=== PATIENT | female | born 1965 | race Caucasian/White ===

== ENCOUNTER → 2016-09-09 | Outpatient (CLI) | payer BC ==
--- NOTE | 2016-09-09 09:09 | MM ---
Reason for exam: additional evaluation requested from prior study. Last mammogram was performed 1 year ago. History: Patient is postmenopausal, has history of breast cancer at age 48, and is nulliparous. Mastectomy of the right breast, 2016. Radiation therapy, 2016. Chemotherapy, 2015. Taking antineoplastic beginning at age 49. Physical Findings: Nurse did not find any significant physical abnormalities on exam. MG 3D Diag Mammo W/Cad LT CC and MLO view(s) were taken of the left breast. Prior study comparison: September 08, 2015, left breast MG 3d diag mammo w/cad LT. October 14, 2014, bilateral MG diagnostic mammo w CAD CHARY. No significant new findings when compared with previous films. These results were verbally communicated with the patient and result sheet given to the patient on 09/09/16. ASSESSMENT: Benign, BI-RAD 2 RECOMMENDATION: Routine screening mammogram of the left breast in 1 year.
== END | disposition home or self-care (01) ==
LOC: RADMAMWWP 08:15
PROVIDERS: ATTEND Surgery
DX: Z08 Encounter for follow-up examination after completed treatment for malignant neoplasm (principal); Z85.3 Personal history of malignant neoplasm of breast
CPT/HCPCS: G0206; G0279

== ENCOUNTER → 2017-07-12 | Outpatient (CLI) | payer BC ==
--- NOTE | 2017-07-12 18:02 | BD ---
EXAMINATION TYPE: MG DEXA axial skeleton. DATE OF EXAM: 07/12/2017 COMPARISON: NONE CLINICAL HISTORY: Height: 66.7 IN Weight: 184 LBS FRAX RISK QUESTIONS: Alcohol (3 or more units per day): NO Family History (Parent hip fracture): NO Glucocorticoids (More than 3mos): NO (Ex: prednisone, prednisolone, methylprednisolone, dexamethasone, and hydrocortisone). History of Fracture in Adulthood: NO Secondary Osteoporosis: 1. Type 1 Diabetes: NO 2. Hyperthyroidism: NO 3. Menopause before 45: NO 4. Malnutrition: NO 5. Chronic liver disease: NO Rheumatoid Arthritis: NO Current Tobacco Use: NO RISK FACTORS HISTORY OF: Family History of Osteoporosis: MOTHER Active: YES Diet low in dairy products/other sources of calcium: YES Postmenopausal woman: AGE 49 MEDICATIONS: Additional Medications: FEMARA, VIT E FISH OIL Additional History: BREAST CANCER WITH CHEMO AND RADIATION IN 2014 EXAM MEASUREMENTS: Bone mineral densitometry was performed using the [employer]. Bone mineral density as measured about the Lumbar spine is: ----- L1-L4(G/cm2): 0.911 T Score Values are as follows: ----- L2: -2.5 ----- L3: -2.1 ----- L4: -2.8 ----- L1-L4: -2.2 Bone mineral density BASELINE Bone mineral density about the R hip (g/cm2): 0.744 Bone mineral density about the L hip (g/cm2): 0.768 T Score values are as follows: -----R Neck: -2.1 -----L Neck: -1.9 -----R Total: -2.1 -----L Total: -2.0 Bone mineral density BASELINE IMPRESSION: Osteopenia (T Score between -2.5 and -1). There is slightly increased risk of fracture and the patient may be considered for treatment. Re-Screen 2-5 years. NOTE: T-SCORE=SD OF THE YOUNG ADULT MEAN.
== END | disposition home or self-care (01) ==
LOC: RADBDWWP 08:35
PROVIDERS: ATTEND Internal Medicine Hematology & Oncology
DX: C50.411 Malignant neoplasm of upper-outer quadrant of right female breast (principal); M85.80 Other specified disorders of bone density and structure, unspecified site
CPT/HCPCS: 77080

== ENCOUNTER → 2017-09-11 | Outpatient (CLI) | payer BC ==
--- NOTE | 2017-09-11 08:55 | MM ---
Reason for exam: additional evaluation requested from prior study. Last mammogram was performed 1 year ago. History: Patient is postmenopausal, has history of breast cancer at age 48, and is nulliparous. Mastectomy of the right breast, 2016. Radiation therapy, 2016. Chemotherapy, 2015. Taking antineoplastic beginning at age 49. Physical Findings: Nurse did not find any significant physical abnormalities on exam. MG 3D Diag Mammo W/Cad LT CC and MLO view(s) were taken of the left breast. Prior study comparison: September 09, 2016, left breast MG 3d diag mammo w/cad LT. September 08, 2015, left breast MG 3d diag mammo w/cad LT. There are scattered fibroglandular densities. No significant new findings when compared with previous films. These results were verbally communicated with the patient and result sheet given to the patient on 09/11/17. ASSESSMENT: Negative, BI-RAD 1 RECOMMENDATION: Follow-up diagnostic mammogram of the left breast in 1 year.
== END | disposition home or self-care (01) ==
LOC: RADMAMWWP 07:35
PROVIDERS: ATTEND Surgery
DX: Z08 Encounter for follow-up examination after completed treatment for malignant neoplasm (principal); Z85.3 Personal history of malignant neoplasm of breast
CPT/HCPCS: 77061; 77065

== ENCOUNTER → 2017-09-21 | Outpatient (CLI) | payer BC ==
[2017-09-21 10:58] VITALS: BP 114/58; PULSE 75; BMI 29.2
--- NOTE | 2017-09-21 11:24 | P.GSHP ---
History of Present Illness H&P Date: 09/21/17 Patient is a 51 year old white female status post right mastectomy done on 2015. The patient underwent preoperative chemotherapy and then a mastectomy followed by radiation therapy. The patient is presently on Femara. The patient has no complaints at this time. She has no evidence of any recurrence. Patient has no swelling that she is concerned about in her right upper extremity. Patient had a left breast mammogram performed 09/01/17. This was felt to be negative BIRADS 1. Follow-up left breast mammogram in 1 year recommended. Patient underwent a PET scan recently and results are pending. The patient has an appointment with Dr. Bojorquez in September. Family History: negative for cancer menstral periods: 12 : none menopause: related to chemotherapy hormones: none BCP: none radiation to chest wall: none prior to surgery - Constitutional Comment: Occasional hot flashes for which she takes vitamin E - EENT Eyes: denies blurred vision, denies bulging eye, denies decreased vision Ears, nose, mouth and throat: Denies headache, Denies sore throat - Breasts Comment: Patient status post right mastectomy for malignancy, and no changes of concern in the left breast - Cardiovascular Cardiovascular: Denies chest pain, Denies shortness of breath - Respiratory Respiratory: Denies cough, Denies 7 - Gastrointestinal Comment: The bowel syndrome, have discussed colonoscopy has not had one for over 10 years Gastrointestinal: Reports constipation, Denies abdominal pain, Denies diarrhea, Denies nausea, Denies vomiting - Genitourinary (Female) Genitourinary: Denies dysuria, Denies hematuria - Menstruation Comment: Menopause as a result of the chemotherapy Menstruation: Reports amenorrhea - Musculoskeletal Musculoskeletal: Denies myalgias - Integumentary Comment: Telangiectasias right chest wall related to radiation Integumentary: Denies pruritus, Denies rash - Neurological Neurological: Denies numbness, Denies weakness - Psychiatric Psychiatric: Denies anxiety, Denies depression - Endocrine Endocrine: Denies fatigue, Denies weight change - Hematologic/Lymphatic Comment: none, no blood thiners - Allergic/Immunologic Comment: PCN Allergic/Immunologic: Reports seasonal allergies Past Medical History Past Medical History: Cancer Additional Past Medical History / Comment(s): IBS, RIGHT BREAST CA AND VERTEBRAE CA -DIAGNOSED SEPTEMBER 2014, LAST CHEMO ., HAS MEDIPORT. History of Any Multi-Drug Resistant Organisms: None Reported Past Surgical History: Breast Surgery, Tonsillectomy Additional Past Surgical History / Comment(s): TONSILLS A CHILD, MEDIPORT Past Anesthesia/Blood Transfusion Reactions: No Reported Reaction Additional Past Anesthesia/Blood Transfusion Reaction / Comment(s): WOKE UP CRYING. Past Psychological History: No Psychological Hx Reported Smoking Status: Never smoker Past Alcohol Use History: Rare Past Drug Use History: None Reported - Past Family History Mother Family Medical History: Diabetes Mellitus Medications and Allergies Home Medications Medication Instructions Recorded Confirmed Type Vitamin E 1 tab PO DAILY 05/18/15 09/21/17 History Letrozole 25 tbsp PO DAILY 09/21/17 09/21/17 History Allergies Allergy/AdvReac Type Severity Reaction Status Date / Time Penicillins Allergy Unknown Verified 05/19/15 15:08 Childhood Nuts, Seeds AdvReac Unknown Unknown Uncoded 05/19/15 15:08 Surgical - Exam Vital Signs Pulse BP Pulse Ox 75 114/58 99 09/21/17 10:49 09/21/17 10:49 09/21/17 10:49 - General well developed, well nourished - Eyes normal ocular movement - ENT normal pinna, normal mucosa - Neck no masses, trachea midline, no lymphadectomy - Respiratory normal expansion, normal respiratory effort, clear to percussion, clear to auscultation - Cardiovascular Rhythm: regular Heart Sounds: normal: S1, S2 - Abdomen Abdomen: soft, non tender, no guarding, no rigid, no rebound - Integumentary Telangiectasias right chest wall related to radiation treatment No evidence of any recurrent cancer on the right mastectomy site Right axilla no adenopathy of concern Left breast: Multiple physician exam no dominant masses or nodules of concern breast tissue Left axilla: No adenopathy of concern - Neurologic normal coordination - Musculoskeletal normal gait - Psychiatric oriented to time, oriented to person, oriented to place, speech is normal, memory intact Results 1. Patient status post right breast mastectomy no evidence of recurrence at this time 2. PET scan results pending 3. Recent left breast mammogram benign Plan: 1. Follow up with Dr. Bojorquez 2. Await results of PET scan 3. Follow-up here in 6 months time CC: , Dr. Bojorquez
== END | disposition home or self-care (01) ==
LOC: WWCWWP 10:45
PROVIDERS: ATTEND Surgery
DX: Z85.3 Personal history of malignant neoplasm of breast (principal); Z88.0 Allergy status to penicillin; Z90.11 Acquired absence of right breast and nipple

== ENCOUNTER → 2018-03-15 | Outpatient (CLI) | payer BC ==
[2018-03-15 09:52] VITALS: BP 129/60; PULSE 82; RESP 18; TEMP 97.5; BMI 29.7
--- NOTE | 2018-03-15 10:21 | P.PN ---
Subjective Progress Note Date: 03/15/18 Principal diagnosis: Right breast mastectomy April 2015 Patient is a 52 year old white female status post right mastectomy. She underwent preoperative chemotherapy. She then had a mastectomy followed by radiation therapy. She is presently on Femara. The patient has rare episodes of right axillary pinching-like pain which subside. She does not know what precipitates this. The patient did have a PET scan performed in June 2017. This PET scan revealed some uptake in the tonsillar areas but otherwise no metastatic or local regional recurrence was identified. The patient has had a cough recently for which she was started on an antibiotic by Dr. Bojorquez. Objective - Vital Signs Vital signs: Vital Signs Temp 97.5 F L 03/15/18 09:46 Pulse 82 03/15/18 09:46 Resp 18 03/15/18 09:46 BP 129/60 03/15/18 09:46 Pulse Ox 99 03/15/18 09:46 Intake & Output 03/14/18 03/15/18 03/15/18 18:59 06:59 18:59 Weight 86.183 kg - Constitutional General appearance: Present: average body habitus - EENT Eyes: Present: EOMI ENT: Present: hearing grossly normal - Neck Neck: Present: normal ROM - Respiratory Respiratory: bilateral: CTA - Cardiovascular Rhythm: regular Heart sounds: normal: S1, S2 - Gastrointestinal General gastrointestinal: Present: soft - Integumentary Integumentary Comment(s): Telangiectasias over the upper outer quadrant area of the right chest wall, some dry skin in this area as well lying otherwise normal turgor of the skin No jaundice - Musculoskeletal Musculoskeletal: Present: gait normal - Psychiatric Psychiatric: Present: A&O x's 3, appropriate affect, intact judgment & insight - Additional findings Additional findings: Breast examination: Right chest wall as well healed incision no evidence of recurrent disease telangiectasias in the upper chest with some dryness of the skin at the site Right axilla: No adenopathy of concern Left breast: Multi-positional exam dense tissue greatest tenseness in the upper outer quadrant area of dominant mass or nodules of concern otherwise Left axilla: No adenopathy of concern - Imaging and Cardiology Mammogram report reviewed Assessment and Plan Assessment: Impression: 1. Patient status post right mastectomy preoperative chemotherapy and radiation therapy post operatively 2. Patient presently on Femara 3. Telangiectasias/dry skin right chest wall Plan: 1. Patient will have repeat PET scan in the spring 2. Repeat left breast mammogram in August 2018 3. Punch biopsy of area of dryness and telangiectasias skin right chest wall CC: Dr. Luque
== END ==
LOC: WWCWWP 08:57
PROVIDERS: ATTEND Surgery
DX: Z53.9 Procedure and treatment not carried out, unspecified reason (principal)

== ENCOUNTER → 2018-09-13 | Outpatient (CLI) | payer BC ==
--- NOTE | 2018-09-13 09:35 | MM ---
Reason for exam: additional evaluation requested from prior study. Last mammogram was performed 1 year ago. History: Patient is postmenopausal, has history of breast cancer at age 48, and is nulliparous. Mastectomy of the right breast, 2016. Radiation therapy, 2016. Chemotherapy, 2015. Taking antineoplastic beginning at age 49. Physical Findings: Nurse did not find any significant physical abnormalities on exam. MG 3D Diag Mammo W/Cad LT CC and MLO view(s) were taken of the left breast. Prior study comparison: September 11, 2017, left breast MG 3d diag mammo w/cad LT. September 09, 2016, left breast MG 3d diag mammo w/cad LT. There are scattered fibroglandular densities. No significant new findings when compared with previous films. These results were verbally communicated with the patient and result sheet given to the patient on 09/13/18. ASSESSMENT: Negative, BI-RAD 1 RECOMMENDATION: Follow-up diagnostic mammogram of the left breast in 1 year.
== END | disposition home or self-care (01) ==
LOC: RADMAMWWP 08:17
PROVIDERS: ATTEND Surgery
DX: Z85.3 Personal history of malignant neoplasm of breast (principal); Z90.11 Acquired absence of right breast and nipple
CPT/HCPCS: 77061; 77065

== ENCOUNTER → 2018-09-20 | Outpatient (CLI) | payer BC ==
[2018-09-20 10:08] VITALS: BP 117/82; PULSE 71; RESP 16; TEMP 98.3; BMI 29.0
--- NOTE | 2018-09-20 11:03 | P.PN ---
Subjective Progress Note Date: 09/20/18 Principal diagnosis: October 2014 diagnosed right breast cancer Mis is a 52-year-old white female status post right mastectomy. She underwent preoperative chemotherapy. She had a mastectomy followed by radiation therapy. She did not have reconstruction. This was done in April 2015. She is presently on Femara. She states the right axillary pain which was pinching in nature has decreased. She does not feel any lumps or masses in her breast. She had a recent left breast mammogram performed 09-13-18. This was felt to be benign BIRADS 1. She is recommended to have a repeat left breast mammogram in 1 year. She had blood work performed on 07-12-18. She had a PET scan on June 27. On the blood work liver function studies were noted to be normal, CA antigen 153 was elevated at 29.2, Dr. Bojorquez is aware of this and this is being followed. As per the patient she states that this is stable. She also had a PET scan performed her previous PET scan showed uptake in the tonsillar beds but she states this PET scan she was told was stable. Family history: 1. none Hormonal history: Menarche: 14 G0 menopause: iniated with chemotherapy BCP: none hormones: femora Surgical history: 1. Right mastectomy 2. Tonsillectomy at 9 Medical history: Negative Social history: Smoke: Negative Alcohol:weekly drugs: none Review of systems: HEENT: Negative Lungs: Negative Heart: Negative GI: Negative : Negative Breasts: Status post right mastectomy for breast cancer Musculoskeletal: Leg muscle aches at times related to Femara Objective - Vital Signs Vital signs: Vital Signs Temp 98.3 F 09/20/18 10:00 Pulse 71 09/20/18 10:00 Resp 16 09/20/18 10:00 BP 117/82 09/20/18 10:00 Pulse Ox 97 09/20/18 10:00 Intake & Output 09/19/18 09/20/18 09/20/18 18:59 06:59 18:59 Weight 83.915 kg - Exam BMI 29 - Constitutional General appearance: Present: average body habitus - EENT Eyes: Present: EOMI ENT: Present: hearing grossly normal - Neck Neck: Present: normal ROM - Respiratory Respiratory: bilateral: CTA - Cardiovascular Rhythm: regular Heart sounds: normal: S1, S2 - Gastrointestinal Gastrointestinal Comment(s): no guarding or rebound General gastrointestinal: Present: soft - Integumentary Integumentary: Present: normal turgor - Musculoskeletal Musculoskeletal: Present: gait normal - Psychiatric Psychiatric: Present: A&O x's 3, appropriate affect, intact judgment & insight - Additional findings Additional findings: breast exam: Right chest wall: Telangiectasias related to radiation therapy, no evidence of any recurrent cancer Right axilla: No adenopathy of concern Left breast: Dense breast tissue, fibrocystic changes, no dominant masses or nodules of concern Left axilla: No adenopathy of concern Assessment and Plan Assessment: Impression/plan: 1. Status post right mastectomy, no evidence of current localized disease 2. Mildly elevated CA [address] Bojorquez 3. Fibrocystic breast changes in the left breast Plan: 1. Continue present therapy 2. Continue Femora 3. Continue follow-up with medical oncology 4. Follow-up here in 6 months time 5. Obtain PET scan results CC: Reno Wilson
== END ==
LOC: WWCWWP 09:37
PROVIDERS: ATTEND Surgery
DX: Z53.9 Procedure and treatment not carried out, unspecified reason (principal)

== ENCOUNTER → 2019-09-16 | Outpatient (CLI) | payer BC ==
--- NOTE | 2019-09-16 13:39 | MM ---
Reason for exam: additional evaluation requested from prior study. Last mammogram was performed 1 year ago. History: Patient is postmenopausal, has history of breast cancer at age 48, and is nulliparous. Mastectomy of the right breast, 2016. Radiation therapy, 2016. Chemotherapy, 2015. Taking antineoplastic beginning at age 49. Physical Findings: Nurse did not find any significant physical abnormalities on exam. MG 3D Diag Mammo W/Cad LT CC and MLO view(s) were taken of the left breast. Prior study comparison: September 13, 2018, left breast MG 3d diag mammo w/cad LT. September 11, 2017, left breast MG 3d diag mammo w/cad LT. There are scattered fibroglandular densities. There is no discrete abnormality. These results were verbally communicated with the patient and result sheet given to the patient on 09/16/19. ASSESSMENT: Negative, BI-RAD 1 RECOMMENDATION: Follow-up diagnostic mammogram of the left breast in 1 year.
== END | disposition home or self-care (01) ==
LOC: RADMAMWWP 12:39
PROVIDERS: ATTEND Internal Medicine Hematology & Oncology
DX: Z08 Encounter for follow-up examination after completed treatment for malignant neoplasm (principal); Z85.3 Personal history of malignant neoplasm of breast
CPT/HCPCS: 77061; 77065

== ENCOUNTER → 2019-10-09 | Outpatient (CLI) | payer BC ==
--- NOTE | 2019-10-09 12:48 | BD ---
EXAMINATION TYPE: Axial Bone Density DATE OF EXAM: 10/09/2019 COMPARISON: 07.12.2017 CLINICAL HISTORY: 53 YR OLD FEMALE.....[facility] CODE: M89.9 OSTEOPOENIA, C50.411 BREAST CANCER Height: 66.4 Weight: 185 FRAX RISK QUESTIONS: Family History (Parent hip fracture): NO FX RISK FACTORS HISTORY OF: Family History of Osteoporosis: YES, MOTHER AND GRANDMOTHER Postmenopausal woman: YES, AT AGE 50 YRS OLD, CHEMO INDUCED Hyperparathyroidism: NO Adrenal Insufficiency: NO MEDICATIONS: Additional Medications: HX OF CHEMO AND RADIATION, RT BR CANCER, LETROZOLE FOR BREAST CA, MULTIVITAMI N Additional History: HX OF BREAST CANCER, RT BREAST EXAM MEASUREMENTS: Bone mineral densitometry was performed using the [employer]. Bone mineral density as measured about the Lumbar spine is: ----- L1-L4(G/cm2): 0.869 T Score Values are as follows: ----- L1: -1.8 ----- L2: -2.8 ----- L3: -2.8 ----- L4: -3.0 ----- L1-L4: -2.6 Bone mineral density has: Decreased -5.1% since study of: 07.12.2017 Bone mineral density about the R hip (g/cm2): 0.683 Bone mineral density about the L hip (g/cm2): 0.713 T Score values are as follows: -----R Neck: -2.5 -----L Neck: -2.2 -----R Total: -2.6 -----L Total: -2.3 Bone mineral density has: Decreased -6.7% since study of: 07.12.2017 FRAX%s: THERE IS A 7.6% CHANCE FOR A MAJOR OSTEOPOROTIC FX AND A 1.6% FOR HIP.....PROBABILITY FOR FX IN 10 YRS TIME IMPRESSION: Osteoporosis NOTE: T-SCORE=SD OF THE YOUNG ADULT MEAN.
== END | disposition home or self-care (01) ==
LOC: RADBDWWP 07:51
PROVIDERS: ATTEND Internal Medicine Hematology & Oncology
DX: M81.0 Age-related osteoporosis without current pathological fracture (principal); C50.411 Malignant neoplasm of upper-outer quadrant of right female breast; N95.1 Menopausal and female climacteric states; Z79.890 Hormone replacement therapy
CPT/HCPCS: 77080

== ENCOUNTER → 2020-09-22 | Outpatient (CLI) | payer BC ==
--- NOTE | 2020-09-22 11:27 | MM ---
Reason for exam: additional evaluation requested from prior study. Last mammogram was performed 1 year ago. History: Patient is postmenopausal, has history of breast cancer at age 48, and is nulliparous. Mastectomy of the right breast, 2016. Radiation therapy, 2016. Chemotherapy, 2015. Taking antineoplastic beginning at age 49. Physical Findings: Nurse did not find any significant physical abnormalities on exam. MG 3D Diag Mammo W/Cad LT CC and MLO view(s) were taken of the left breast. Prior study comparison: September 16, 2019, left breast MG 3d diag mammo w/cad LT. September 13, 2018, left breast MG 3d diag mammo w/cad LT. There are scattered fibroglandular densities. No significant new findings when compared with previous films. These results were verbally communicated with the patient and result sheet given to the patient on 09/22/20. ASSESSMENT: Benign, BI-RAD 2 RECOMMENDATION: Routine screening mammogram of the left breast in 1 year.
== END | disposition home or self-care (01) ==
LOC: RADMAMWWP 09:39
PROVIDERS: ATTEND Internal Medicine Hematology & Oncology
DX: N64.89 Other specified disorders of breast (principal); Z78.0 Asymptomatic menopausal state; Z85.3 Personal history of malignant neoplasm of breast
CPT/HCPCS: 77061; 77065

== ENCOUNTER → 2021-10-12 | Outpatient (CLI) | payer BC ==
--- NOTE | 2021-10-13 08:46 | MM ---
Reason for Exam: Hx of breast cancer, mastectomy. Last mammogram was performed 1 year(s) and 1 month(s) ago. Patient History: Menarche at age 16. Patient has no children. Postmenopausal. Breast cancer, right, age 48. Previous chest radiation therapy at age 48. Previous chemotherapy at age 48. 2016, Mastectomy on the Right side. 2016, Radiation Therapy. 2014, Chemotherapy. Prior Study Comparison: 09/13/2018 Left Diagnostic Mammogram, [facility]. 09/16/2019 Left Diagnostic Mammogram, [facility]. 09/22/2020 Left Diagnostic Mammogram, [facility]. Tissue Density: Left: There are scattered fibroglandular densities. Findings: Analyzed By CAD. No suspicious calcifications, dominant mass or architectural distortion. Overall Assessment: Benign, BI-RAD 2 Management: Screening Mammogram of the left breast in 1 year. A clinical breast exam by your physician is recommended on an annual basis and results should be correlated with mammographic findings. This exam should not preclude additional follow-up of suspicious palpable abnormalities. Results were given to the patient verbally at the time of exam. Electronically signed and approved by: Jake Riley M.D. Radiologis
--- NOTE | 2021-10-13 12:12 | BD ---
EXAMINATION TYPE: Axial Bone Density DATE OF EXAM: 10/12/2021 COMPARISON: 07/12/2017 CLINICAL HISTORY: 55 years year old Female. ICD-10 CODE: C50.411 BREAST CA Height: 66.5 IN Weight: 184 LBS RISK FACTORS HISTORY OF: Family History of Osteoporosis: YES MOTHER Active: YES Diet low in dairy products/other sources of calcium: YES Postmenopausal woman: AGE 48 MEDICATIONS: Osteoporosis Medications: Which medication: RISENDRONATE How Lon YEARS Additional Medications: RISENDRONATE, ZINC, VIT E, FEMARA Additional History: BREAST CANCER WITH CHEMO AND RADIATION EXAM MEASUREMENTS: Bone mineral densitometry was performed using the [employer]. Bone mineral density as measured about the Lumbar spine is: ----- L1-L4(G/cm2): 0.909 T Score Values are as follows: ----- L1: -1.2 ----- L2: -2.4 ----- L3: -2.6 ----- L4: -2.7 ----- L1-L4: -2.3 Bone mineral density has: Decreased -1.3% since study of: 07/12/2017 Bone mineral density about the R hip (g/cm2): 0.709 Bone mineral density about the L hip (g/cm2): 0.727 T Score values are as follows: -----R Neck: -2.4 -----L Neck: -2.2 -----R Total: -2.4 -----L Total: -2.2 Bone mineral density has: Decreased -4.3% since study of: 07/12/2017 FRAX%s: The graph provided illustrates a 8.2 chance for a major osteoporotic fx and a 1.4 chance for the hips probability for fx in 10 years time. IMPRESSION: Osteopenia (T Score between -2.5 and -1). There is slightly increased risk of fracture and the patient may be considered for treatment. Re-Screen 2-5 years. NOTE: T-SCORE=SD OF THE YOUNG ADULT MEAN.
== END | disposition home or self-care (01) ==
LOC: RADMAMWWP 14:13
PROVIDERS: ATTEND Internal Medicine Hematology & Oncology
DX: R92.8 Other abnormal and inconclusive findings on diagnostic imaging of breast (principal); M81.0 Age-related osteoporosis without current pathological fracture; Z78.0 Asymptomatic menopausal state; Z80.3 Family history of malignant neoplasm of breast
CPT/HCPCS: 77061; 77065; 77080

== ENCOUNTER → 2021-12-01 | Outpatient (CLI) | payer BC ==
--- NOTE | 2021-12-02 18:48 | MR ---
EXAMINATION TYPE: MR thoracic spine wo/w con DATE OF EXAM: 12/01/2021 COMPARISON: PET/CT 10/19/2021 HISTORY: C 50.411 breast cancer CONTRAST: Performed utilizing 8 mL intravenous Gadavist gadolinium contrast. TECHNIQUE: Multiplanar, multiecho imaging on a 3.0 Krystal magnet is performed through the thoracic spi ne. Postcontrast imaging is performed. Axial images are limited to the disc spaces. Findings: Spinal cord maintains normal signal through its visualized course. Vertebral body alignment is normal. Vertebral body heights are preserved. Disc heights are preserved. There is diffuse disc desiccation throughout the thoracic spine. T3-4: There is a small central protrusion with mild anterior thecal sac compression. Cord contact is not evident. No spinal canal stenosis or neural foraminal stenosis is present. T7-8: Broad-based disc bulge has mild anterior thecal sac contact. No cord contact is evident. No spi nal canal stenosis present. T10-11: There is a left paracentral disc bulge with [id number] anterior thecal sac impression. This comes in close approximation with the spinal cord. No cord contact is evident. No spinal canal s tenosis is present. T11-12: Mild left paracentral disc bulge has mild anterior thecal sac compression. No spinal canal st enosis or neural foraminal stenosis is present. No cord contact is evident. No abnormal enhancement is evident. Vague signal change may be present within the T10 vertebral level which appears similar on pre and postcontrast T1-weighted images. Hemangioma is favored at this loca tion. Whole body bone scan may be useful if confirmation is required. IMPRESSIONS: 1. No suspicious changes to suggest metastatic disease. 2. Disc bulges discussed above, the largest in the left paracentral region at T11-12.
== END | disposition home or self-care (01) ==
LOC: RADMRIMAIN 09:24
PROVIDERS: ATTEND Internal Medicine Hematology & Oncology
DX: C50.411 Malignant neoplasm of upper-outer quadrant of right female breast (principal); M51.24 Other intervertebral disc displacement, thoracic region
CPT/HCPCS: 72157; A9585

== ENCOUNTER → 2023-10-16 | Outpatient (CLI) | payer BC ==
--- NOTE | 2023-10-16 08:20 | MM ---
Reason for Exam: Hx of breast cancer, mastectomy. Last screening mammogram was performed 12 month(s) ago. Patient History: Menarche at age 16. Patient has no children. Postmenopausal. Breast cancer, right, age 48. Previous chest radiation therapy at age 48. Previous chemotherapy at age 48. 2016, Mastectomy on the Right side. 2016, Radiation Therapy. 2014, Chemotherapy. Prior Study Comparison: 09/22/2020 Left Diagnostic Mammogram, [facility]. 10/12/2021 Left MG 3D diag mammo w/cad LT, [facility]. 10/13/2022 Left MG 3D scr niko unilateral w/cad., [facility]. Tissue Density: Left: There are scattered areas of fibroglandular density. Findings: Analyzed By CAD. No distinct mass or distortion. No suspicious microcalcifications. Overall Assessment: Negative, BI-RAD 1 Management: Diagnostic Mammogram of the left breast in 1 year. . Results were given to the patient verbally at the time of exam. Patient should continue monthly self-breast exams. A clinical breast exam by your physician is recommended on an annual basis. This exam should not preclude additional follow-up of suspicious palpable abnormalities. Note on Justina scores and lifetime risk: 1. A Justina score greater than 3% is considered moderate risk. If this is the case, consider specialist referral to assess eligibility for a risk reducing agent. 2. If overall lifetime risk for the development of breast cancer is 20% or higher, the patient may qualify for future screening with alternating mammogram and breast MRI. Electronically signed and approved by: Eulogio Rae M.D. Radiologis
--- NOTE | 2023-10-16 15:19 | BD ---
EXAMINATION TYPE: Axial Bone Density DATE OF EXAM: 10/16/2023 CLINICAL HISTORY: 57 years old Female. ICD-10 CODE: Z78.0 ASYMPTOMATIC MENOPAUSAL,M89.9 Height: 67" Weight: 190lbs FRAX RISK QUESTIONS: Alcohol (3 or more units per day): No Family History (Parent hip fracture): No Glucocorticoids (More than 3mos): No (Ex: prednisone, prednisolone, methylprednisolone, dexamethasone, and hydrocortisone). History of Fracture in Adulthood: Secondary Osteoporosis: 1. Type 1 Diabetes: No 2. Hyperthyroidism: No 3. Menopause before 45: No 4. Malnutrition: No 5. Chronic liver disease: No Rheumatoid Arthritis: No Current Tobacco Use: No RISK FACTORS HISTORY OF: Hip Fracture (Right/Left): No Spine Fracture: No History of Wrist Fracture: No Surgery to Spine/Hip(right/left)/Wrist (right/left): No MEDICATIONS: Thyroid Medications: Yes Which medication: Levothyroxine How Long: About one month Osteoporosis Medications: Yes Prolia for about two years EXAM MEASUREMENTS: Bone mineral densitometry was performed using the [employer] System. Bone mineral density as measured about the Lumbar spine is: ----- L1-L4(G/cm2): 0.959 T Score Values are as follows: ----- L1: -1.3 ----- L2: -2.2 ----- L3: -1.7 ----- L4: -2.2 ----- L1-L4: -1.8 Z Score Values are as follows: ----- L1: -1.2 ----- L2: -2.0 ----- L3: -1.5 ----- L4: -2.0 ----- L1-L4: -1.7 Bone mineral density has: increased 5.5% since study of: 10/12/2021 Bone mineral density about the R hip (g/cm2): 0.735 Bone mineral density about the L hip (g/cm2): 0.801 T Score values are as follows: -----R Neck: -2.2 -----L Neck: -1.6 -----R Total: -2.2 -----L Total: -1.6 Z Score values are as follows: -----R Neck: -1.3 -----L Neck: -1.0 -----R Total: -2.0 -----L Total: -1.5 Bone mineral density has: increased 7.3% since study of: 10/12/2021 FRAX%s: The graph provided illustrates a 8.6% chance for a major osteoporotic fx and a 1.3% chance fo r the hips probability for fx in 10 years time. IMPRESSION: Osteopenia (T Score between -2.5 and -1). There is slightly increased risk of fracture and the patient may be considered for treatment. Re-Screen 2-5 years. NOTE: T-SCORE=SD OF THE YOUNG ADULT MEAN.
== END | disposition home or self-care (01) ==
LOC: RADMAMWWP 07:56
PROVIDERS: ATTEND Internal Medicine Hematology & Oncology
DX: M85.89 Other specified disorders of bone density and structure, multiple sites (principal); R92.322 Mammographic fibroglandular density, left breast; Z85.3 Personal history of malignant neoplasm of breast; Z78.0 Asymptomatic menopausal state
CPT/HCPCS: 77061; 77065; 77080

== ENCOUNTER → 2024-10-18 | Outpatient (CLI) | payer BC ==
--- NOTE | 2024-10-18 11:09 | MM ---
Reason for Exam: Hx of breast cancer, mastectomy. Last screening mammogram was performed 12 month(s) ago. Patient History: Menarche at age 16. Patient has no children. Postmenopausal. Breast cancer, right, age 48. Previous chest radiation therapy at age 48. Previous chemotherapy at age 48. 2016, Mastectomy on the Right side. 2016, Radiation Therapy. 2014, Chemotherapy. Prior Study Comparison: 10/12/2021 Left MG 3D diag mammo w/cad LT, [facility]. 10/13/2022 Left MG 3D scr niko unilateral w/cad., [facility]. 10/16/2023 Left MG 3D diag mammo w/cad LT, [facility]. Tissue Density: Left: There are scattered areas of fibroglandular density. Findings: Analyzed By CAD. No new suspicious masses, calcifications or distortions. Overall Assessment: Negative, BI-RAD 1 Management: Screening Mammogram of the left breast in 1 year. Results were given to the patient verbally at the time of exam. Patient should continue monthly self-breast exams. A clinical breast exam by your physician is recommended on an annual basis. This exam should not preclude additional follow-up of suspicious palpable abnormalities. Note on Justina scores and lifetime risk: 1. A Justina score greater than 3% is considered moderate risk. If this is the case, consider specialist referral to assess eligibility for a risk reducing agent. 2. If overall lifetime risk for the development of breast cancer is 20% or higher, the patient may qualify for future screening with alternating mammogram and breast MRI. [facility], , 10/18/2024 11:06 AM. Electronically signed and approved by: Gabriel Parker DO
== END | disposition home or self-care (01) ==
LOC: RADMAMWWP 10:32
PROVIDERS: ATTEND Internal Medicine Hematology & Oncology
DX: C50.411 Malignant neoplasm of upper-outer quadrant of right female breast (principal); C79.51 Secondary malignant neoplasm of bone; U07.1 COVID-19; Z17.0 Estrogen receptor positive status [ER+]; Z71.3 Dietary counseling and surveillance; R92.323 Mammographic fibroglandular density, bilateral breasts; Z78.0 Asymptomatic menopausal state; Z85.3 Personal history of malignant neoplasm of breast
CPT/HCPCS: 77061; 77065